=== PATIENT | male | born 1970 | race Caucasian/White ===

== ENCOUNTER 2023-03-08 15:04 | Outpatient (REF) | payer BC, SELFPAY ==
[2023-03-08 16:49] LABS: Abs Immature Grans 0.02 10^3/uL (0.0-0.06); Absolute Basophil Count 0.08 10^3/uL (0.0-0.2); Absolute Eosinophil Count 0.74 10^3/uL (0.0-0.7); Absolute Lymphocyte Count 1.95 10^3/uL (1.2-3.4); Absolute Monocyte Count 0.46 10^3/uL (0.1-0.8); Absolute Neutrophil Count 3.41 10^3/uL (1.2-6.7); Basophils % 1.2; Eosinophils % 11.1; HCT 38.7 % (40.0-50.0); HGB 12.4 g/dL (13.5-17.5); Immature Grans % 0.3; Lymphocytes % 29.3; MCV 91 fL (80-95); MPV 9.8 fL (8.0-11.0); Monocytes % 6.9; Neutrophils % 51.2; Platelet Count 297 10^3/uL (130-400); RBC 4.27 10^6/uL (4.36-5.78); RDW 13.6 % (11.8-14.1); RDW-SD 45.2 fL; WBC 6.66 10^3/uL (4.4-10.8)
[2023-03-08 17:30] LABS: Hemoglobin A1C 6.1 % (<5.7)
[2023-03-08 17:39] LABS: ALT 29 U/L (16-63); AST 12 U/L (15-37); Alkaline Phosphatase 77 U/L (46-116); BUN 13 mg/dL (7-18); Bilirubin, Total 0.3 mg/dL (0.2-1.0); CREATININE 0.8 mg/dL (0.70-1.30); Calcium 9.2 mg/dL (8.5-10.1); Calculated LDL 44 mg/dL (<100); Chloride 103 mmol/L (98-107); Cholesterol 113 mg/dL (<200); Estimated GFR 106.48 (mL/min/1.73m2); Glucose 141 mg/dL (74-106); HDL Cholesterol 51 mg/dL (40-60); Potassium 4.1 mmol/L (3.5-5.1); Sodium 140 mmol/L (136-145); Total Protein 6.9 g/dL (6.4-8.2); Triglyceride 93 mg/dL (<150)
[2023-03-08 17:49] LABS: Microalb ug/mg Crea 6.2 ug/mg Cr
== END 2023-03-08 15:05 | disposition home or self-care (01) ==
LOC: NCHCN 15:04
PROVIDERS: PCP Nurse Practitioner Family; Visit Provider Nurse Practitioner Family
DX: E11.9 Type 2 diabetes mellitus without complications (principal); Z87.891 Personal history of nicotine dependence; E78.5 Hyperlipidemia, unspecified
CPT/HCPCS: 80053; 80061; 82043; 82570; 83036; 85025

== ENCOUNTER 2023-12-03 16:37 | Outpatient (REF) | payer BC, SELFPAY ==
[2023-12-03 19:45] LABS: Abs Immature Grans 0.02 10^3/uL (0.0-0.06); Absolute Basophil Count 0.08 10^3/uL (0.0-0.2); Absolute Eosinophil Count 0.61 10^3/uL (0.0-0.7); Absolute Lymphocyte Count 2.42 10^3/uL (1.2-3.4); Absolute Monocyte Count 0.56 10^3/uL (0.1-0.8); Absolute Neutrophil Count 2.98 10^3/uL (1.2-6.7); Basophils % 1.2; Eosinophils % 9.1; HCT 41.1 % (40.0-50.0); HGB 13.6 g/dL (13.5-17.5); Immature Grans % 0.3; Lymphocytes % 36.3; MCH 29.1 pg (27.0-33.0); MCHC 33.1 % (32.0-36.0); MCV 88 fL (80-95); MPV 9.9 fL (8.0-11.0); Monocytes % 8.4; Neutrophils % 44.7; Platelet Count 257 10^3/uL (130-400); RBC 4.67 10^6/uL (4.36-5.78); RDW 13.2 % (11.8-14.1); RDW-SD 42.4 fL; Reticulocyte 1.1 % (0.5-2.4); WBC 6.67 10^3/uL (4.4-10.8)
[2023-12-03 19:59] LABS: Iron 62 ug/dL (65-175); Total Iron Binding Capacity 307 ug/dL (250-450); Transferrin Sat 20 % (20-55)
[2023-12-03 20:08] LABS: Hemoglobin A1C 6.4 % (<5.7)
[2023-12-03 20:27] LABS: Ferritin 73 ng/mL (26-388); Folate 18.3 ng/mL (8.6-20.0); Vitamin B12 419 pg/mL (193-986)
== END 2023-12-03 16:38 | disposition home or self-care (01) ==
LOC: NCHCN 16:37
PROVIDERS: PCP Nurse Practitioner Family; Visit Provider Student in an Organized Health Care Education/Training Program
DX: E11.9 Type 2 diabetes mellitus without complications (principal); D64.9 Anemia, unspecified
CPT/HCPCS: 85027; 82607; 82728; 82746; 83036; 83540; 83550; 85025; 85045

== ENCOUNTER 2024-01-13 13:46 | Outpatient (CLI) | payer BC, SELFPAY ==
--- NOTE | 2024-01-13 13:45 | RT.EKG_ITS ---
APPROVED REPORT Exam: Resting ECG Reason for Exam: baseline Patient Location: O HR:70 bpm ECG Measurements Heart Rate 70 AXIS WI 161 P 39 QRSd 98 QRS -24 QT 398 T 59 QTc 430 Conclusion Sinus rhythm...normal P axis, V-rate 50- 99 Probable left atrial enlargement...P >50mS, <-0.10mV V1 Borderline left axis deviation...QRS axis (-15,-29) Abnormal R-wave progression, late transition...QRS area<0 in V5/V6 Baseline wander in lead(s) V2
== END 2024-01-13 13:47 | disposition home or self-care (01) ==
LOC: DI.CARD 13:47
PROVIDERS: PCP Nurse Practitioner Family; Visit Provider Internal Medicine Cardiovascular Disease
DX: I25.10 Atherosclerotic heart disease of native coronary artery without angina pectoris (principal)
CPT/HCPCS: 93010

== ENCOUNTER 2024-05-22 06:57 | Day surgery (SDC) | payer BC, SELFPAY ==
--- NOTE | 2024-05-21 13:44 | PDOC.DSDIS_ITS ---
Date of service: 05/22/24 Time of Service: 08:42 Discharge Plan Disposition Patient Disposition: Home Condition: Good Discharge Details Reason For Visit: screening colonoscopy Attending Provider: Saul Florez Primary Care Provider: Radha Mack Home Meds and New Rx's Prescriptions: Continued metoprolol succinate 25 mg tablet extended release 24 hr 25 mg PO DAILY Qty: 90 3RF aspirin [Adult Aspirin Regimen] 81 mg tablet,delayed release (DR/EC) 81 mg PO DAILY atorvastatin 80 mg tablet 80 mg PO DAILY metformin 1,000 mg tablet 1,000 mg PO BID nitroglycerin 0.4 mg tablet, sublingual 0.4 mg sublingual Q5-15M PRN Rx Instructions: do not exceed 3 doses per episode Discontinued bisacodyl [Dulcolax (bisacodyl)] 5 mg tablet,delayed release (DR/EC) 5 mg PO ONCE Qty: 4 0RF Rx Instructions: Take per colonoscopy instructions provided by ordering providers office polyethylene glycol 3350 17 gram/dose powder 17 g PO ONCE Qty: 238 0RF Rx Instructions: Take per colonoscopy instructions provided by ordering providers office Discharge Instructions Instructions: Colon polyps, Diverticulosis Additional Instructions: Eliceo, we are able to complete your colonoscopy today without any difficulty. I did find and remove 6 polyps. All of these were quite small, and none of them have any features that are worrisome to the naked eye. Regardless, I will send these all off for testing, as the nature of the polyps informs the timing of the next colonoscopy. Those results usually take about a week or so to get back, and once they are available, the office will be in touch with recommendations. Incidentally, you also have some diverticulosis. Diverticula are weak spots in the wall of the colon. They typically accumulate as we get older. They can get infected or inflamed. When that happens, we caught diverticulitis, and it is typically experienced as sharp pain, often times on the left lower part of the abdomen. Many times patients are treated with antibiotics during those flareups. Hopefully, you are is never bother you. If you need anything at all, just let us know. Otherwise, we will be in touch once the polyp results are available. 1. If tolerated, consume a soft, low fiber diet for 1-2 days. 2. Do not drive, drink alcohol, operate machinery, make critical decisions, or do activities that require coordination or balance for 24 hours. 3. Because air was put into your colon during the procedure, expelling air from your rectum (passing gas or farting) is normal. 4. You may not have a bowel movement for 1-3 days because of the colonoscopy p rep. This is normal. 5. Go directly to the emergency room if you notice any of the following: Develop chills (warm to touch), or if you have a thermometer and your temperature is above 101 Difficulty breathing or difficultly swallowing Persistent vomiting Severe abdominal pain, other than gas cramps Severe chest pain Black, tarry stools Any bleeding ? exceeding one tablespoon 6. Call your physician if the site where your intravenous was started becomes red, swollen, painful, and warm to touch. 7. Your physician has reviewed your pre-procedure medications. Please continue to take those medications as previously ordered. You will be given specific information/education regarding any changes to your medications before leaving. Activity:: Activity as Tolerated Diet:: As Tolerated Discharge Orders Discharge Orders: Discharge Order (Routine); Ordered 05/21/24 Ordered By: Saul Florez DS: Diagnosis Discharge Diagnosis (1) Encounter for screening colonoscopy: Status: Acute Asessment and Plan: Follow-up on polypectomy results
--- NOTE | 2024-05-21 13:47 | COLE_ITS ---
Date of service: 05/22/24 Time of Service: 08:44 Colonoscopy Report Date of procedure: 05/22/24 Pre-op diagnosis general: screening colonoscopy Post-op diagnosis procedure note: other (Diverticulosis, colon polyps) Procedure: colonoscopy Surgeon: Saul Florez Anesthesia Type: General:No Airway Estimated blood loss (mL): 10 Pathology: other (0.25 cm cecal polyp, 0.5 cm cecal polyp, 0.25 cm polyp at 100 cm, 0.5 cm polyp at 100 cm, 0.25 cm polyp at 30 cm, 0.5 cm polyp at 25 cm) Complications: None Disposition: same day Indications: Antoni is a 54 year old man who needs a screening colonoscopy Prep: Miralax/Dulcolax Procedure Start Time: 08:09 Procedure End Time: 08:35 Retraction Time: 18 Findings: Sigmoid diverticulosis; 0.25 cm cecal polyp, 0.5 cm cecal polyp, 0.25 cm polyp at 100 cm, 0.5 cm polyp at 100 cm, 0.25 cm polyp at 30 cm, 0.5 cm polyp at 25 cm Procedure Description: After the induction of anesthesia, and with the patient in left lateral decubitus position, I began by performing an external anorectal exam.? Perineum and skin were normal, as was the anal verge.? There was no evidence of external hemorrhoids.? Next, I performed a digital rectal exam.? I did not appreciate any abnormal findings.? Next, I advanced a colonoscope into the rectal vault.? I performed retroflexion.? This appeared normal.? Using insufflation, I then advanced the colonoscope beyond the rectal folds and into the sigmoid colon be fore advancing towards the cecum.? There was some sigmoid diverticulosis. The scope was noted to be in the cecum by identification of the ileocecal valve and appendiceal orifice.? Just a few centimeters away from the appendiceal orifice were 2 polyps. 1 was 0.5 cm, and a little bit heaped up, the other was 0.25 cm and flat. These were removed. The larger was excised with cold snare polypectomy. Cold forceps were used for the smaller of the two. I then began withdrawing the colonoscope using repeated irrigation as necessary for full evaluation of the colonic mucosa. ?I also found 2 polyps at 100 cm from the anus. 1 of these was 0.5 cm and mostly flat. The other was 0.25 cm and also flat. These were both removed with snare polypectomy. There was minimal bleeding at the sites. I found a 0.25 cm flat polyp at 30 cm that was removed with cold forceps, and a 0.5 cm polyp at 25 cm that was slightly pedunculated. This was removed with snare polypectomy. All of the sites were hemostatic. Once the scope was withdrawn to the level of the rectum, great care was taken to examine portions of the rectal folds.? Finally, the scope was withdrawn and the patient was brought to the same-day surgery recovery unit as the anesthetic wore off. ?The findings and instructions were shared with the patient prior to discharge. [place] Bowel Prep [place] Bowel Prep Right Colon: 3 Left Colon: 3 Transverse Colon: 3 Total Score: 9
--- NOTE | 2024-05-22 06:33 | ANES.PREOP_ITS ---
General Info Date of Service Date Performed: 05/22/24 Height: 6 ft Weight: 43.824 kg Body Mass Index (BMI): 13.1 Surgical Procedure: Operation Date: 05/22/24 08:20 Proposed Procedure Side Surgeon mohinder Florez MD Meds Allergies and Home Medications Allergies Allergy/AdvReac Type Severity Reaction Status Date / Time No Known Allergies Allergy Verified 05/19/24 09:12 Home Medication ?Medication ?Instructions ?Recorded aspirin 81 mg tablet,delayed 81 mg PO DAILY 12/07/23 release (Adult Aspirin Regimen) atorvastatin 80 mg tablet 80 mg PO DAILY 12/07/23 metformin 1,000 mg tablet 1,000 mg PO BID 12/07/23 nitroglycerin 0.4 mg sublingual 0.4 mg sublingual Q5-15M PRN 12/07/23 tablet metoprolol succinate 25 mg 25 mg PO DAILY #90 tabs 01/13/24 tablet,extended release 24 hr Current Visit Medications: Current Medications Generic Name Dose Route Start Last Admin Trade Name Freq PRN Reason Stop Dose Admin Ringer's Solution 1,000 mls @ 80 mls/hr 05/22/24 06:00 IV 05/22/24 23:59 INFUSION VEENA IV Miscellaneous Supplies 1 each 05/22/24 06:00 Iv Access IV 05/22/24 23:59 DIRECTED VEENA Ondansetron HCl 4 mg 05/21/24 13:48 Ondansetron 4 Mg/2 Ml Vial IVP 06/20/24 13:47 Q4H PRN PRN Nausea / Vomiting Sodium Chloride 0 ml 05/22/24 06:00 Normal Saline Flush 10 Ml Syr IV 05/22/24 23:59 PRN PRN Sodium Chloride 0 ml 05/22/24 06:00 Normal Saline 10 Ml Vial IJ 05/22/24 23:59 DIRECTED PRN Sterile Water 0 ml 05/22/24 06:00 Water,Injection,Sterile 10 Ml Vial IJ 05/22/24 23:59 DIRECTED PRN PFSH Active Problems Active Problems: Problem Status Onset Code Encounter for screening colonoscopy Acute Z12.11 Atherosclerosis of coronary artery without angina pectoris Acute I25.10 Dizziness Acute R42 Pain in thoracic spine Acute M54.6 Osteoarthritis Chronic M19.90 GERD without esophagitis Acute K21.9 Coronary atherosclerosis Acute I25.10 Benign paroxysmal positional vertigo Acute H81.10 Anxiety Chronic F41.9 Anemia Chronic D64.9 Type 2 diabetes mellitus without complication Acute E11.9 Medical History Medical History History of blood disorder Pt. states she does not know anything about this. Old myocardial infarction Essential hypertension Insomnia Nicotine dependence Hyperlipemia Tobacco Smoking/Tobacco Use Status: Former Tobacco Use Alcohol Alcohol Intake: never Substance Use Substance use: Never Substance use type: does not use Vital Signs and Lab Results Lab Results Blood Type / Crossmatch: No Data to Display Complete Blood Count: No Data to Display Complete Metabolic Panel: No Data to Display Liver Function Panel: No Data to Display Coagulation Panel: No Data to Display Cardiac Panel: No Data to Display Arterial Blood Gas: No Data to Display Venous Blood Gas: No Data to Display Pancreas Panel: No Data to Display Thyroid Panel: No Data to Display Infectious Disease: No Data to Display Blood Cultures: No Data to Display Toxicology Panel: No Data to Display Imaging and Studies Imaging and Studies Study information below may be from another EMR and interpreted by another provider. Please see original notes in EMR for more complete details. EKG Summary: EKG PATIENT NAME: Antoni Dai UNIT #: [id number] ORDERING PROVIDER: Augustin Junior M.D. PRIMARY CARE PROVIDER: ADRIANA MANUEL DATE/TIME OF SERVICE: 01/13/24 1239 : 1970 PERFORMING LOCATION: [facility] APPROVED REPORT Exam: Resting ECG Reason for Exam: baseline Patient Location: O HR:70 bpm ECG Measurements Heart Rate 70 AXIS SD 161 P 39 QRSd 98 QRS -24 QT 398 T59 QTc 430 Conclusion Sinus rhythm...normal P axis, V-rate 50- 99 Probable left atrial enlargement...P >50mS, <-0.10mV V1 Borderline left axis deviation...QRS axis (-15,-29) Abnormal R-wave progression, late transition...QRS area<0 in V5/V6 Baseline wander in lead(s) V2 <Electronically signed by AUGUSTIN JUNIOR MD in OV> E-Sign Date: 01/13/24 E-Sign Time: 1354 Anesthesia Assessment and Plan Anesthesia History Personal History: No History of Anesthesia Complications Family History: No Family History of Anesthesia Complications Exercise Tolerance Exercise Tolerance: Metabolic Equivalents>4 Pertinent Negatives Pertinent Negatives: No Symptoms of GERD, No Major Cardiovascular Symptoms or Complaints, No Major Pulmonary Symptoms or Complaints and No History of CVA/TIA Cardiac & Pulmonary Exam Cardiac Exam: Normal S1/S2 Heart Sounds Pulmonary Exam: Clear Bilateral Breath Sounds Implantable Cardiac Device Does patient have a Pacemaker or an ICD?: No Airway Exam Known Difficult Airway: No Mallampati Class: 4 Mouth Opening: Narrow (< 3cm) Thyromental Distance: Greater than 3 cm Neck Range of Motion: Full ROM Neck Circumference: Normal Teeth Condition: Generalized Poor Dentition and Edentulous (On upper jaw) ASA Classification ASA Score: ASA 2 Emergency Case?: No NPO Status NPO Status: NPO Clears >2 hours, Solids >8 hours Anesthesia Plan Resuscitation Status: Full Code Anesthesia Technique: General Anesthesia Airway Planned: Natural Airway Monitors Used: Standard Monitors
[2024-05-22 07:05] VITALS: BP 135/84; PULSE 68; RESP 16; TEMP 36.6; O2SAT 95
[2024-05-22 07:23] VITALS: BMI 13.1
[2024-05-22] MEDS: Lactated Ringers 1,000 ML 80 ML IV (07:40)
--- NOTE | 2024-05-22 08:21 | BOWEL_PTH ---
PATIENT: Antoni Dai LOC: [facility] U#:[id number] AGE/SX: 54/M ROOM: RE05/22/[address]: Saul Florez MD : 1970 BED: DIS: 05/22/2024 SPEC #: [id number] RECD: 05/22/24 12:39 STATUS: FLORA REQ #: [id number] KAREN: 05/22/24 08:[address]: Saul Florez DEPT: Surgical Specimen RECD BY: Anna Adams ENTERED: 05/22/24 12:41 SP TYPE: Bowel OTHR DR: Radha Mack Tissues: 1 - BIOPSY BOWEL 2 - BIOPSY BOWEL 3 - BIOPSY BOWEL 4 - BIOPSY BOWEL Procedures: GROSS AND MICRO LEVEL 4 Comments: [id number]
[2024-05-22 08:40] VITALS: BP 120/80; PULSE 75; RESP 16; TEMP 36.6; O2SAT 97
[2024-05-22 09:06] VITALS: BP 156/83; PULSE 59; RESP 16; TEMP 36.6; O2SAT 99
--- NOTE | 2024-05-22 09:12 | W.ANESPOSTOP ---
Postoperative Evaluation Date, Time and Location Date Performed: 05/22/24 Time Performed: 08:40 Patient Location: Day Surgery Unit Vital Signs Most Recent Imported Vital Signs: Most Recent Vital Signs Temp Pulse Resp BP Pulse Ox 36.6 C 59 L 16 156/83 H 99 05/22/24 09:06 05/22/24 09:06 05/22/24 09:06 05/22/24 09:06 05/22/24 09:06 Pain Score Most Recent Pain Score: Most Recent Pain Score Pain Level 0 05/22/24 09:06 Assessment Mental Status: Awake (Alert & Oriented to Patient Baseline) Airway and Respiratory Function: Patent airway with normal (patient baseline) respiratory exam Cardiovascular Function: Hemodynamically Stable Hydration Status: Adequately Hydrated Nausea & Vomiting: No Nausea or Vomiting Pain: Pt. Denies Any Pain Peripheral Nerve Block: Patient did not receive a nerve block
== END 2024-05-22 09:16 | disposition home or self-care (01) ==
LOC: SUR 06:57
PROVIDERS: PCP Nurse Practitioner Family; Visit Provider Surgery
PROC: 0DJD8ZZ Inspection of Lower Intestinal Tract, Via Natural or Artificial Opening Endoscopic (ICD-10-PCS; CPT 45378; principal; 2024-05-22 08:15)
DX: Z12.11 Encounter for screening for malignant neoplasm of colon (principal); I25.10 Atherosclerotic heart disease of native coronary artery without angina pectoris; D12.3 Benign neoplasm of transverse colon; K57.30 Diverticulosis of large intestine without perforation or abscess without bleeding; D12.5 Benign neoplasm of sigmoid colon; D12.0 Benign neoplasm of cecum
CPT/HCPCS: 45385; 45380; 88305; J2704

== ENCOUNTER 2024-07-14 18:27 | Outpatient (REF) | payer BC, SELFPAY ==
[2024-07-14 20:08] LABS: COMMENT (LAB VIEW ONLY) 154.41 mg/dL
== END 2024-07-14 18:28 | disposition home or self-care (01) ==
LOC: NCHCN 18:27
PROVIDERS: PCP Nurse Practitioner Family; Visit Provider Student in an Organized Health Care Education/Training Program
DX: E11.9 Type 2 diabetes mellitus without complications (principal)
CPT/HCPCS: 82043; 82570

== ENCOUNTER 2025-06-06 13:16 | Outpatient (REF) | payer BC, SELFPAY ==
[2025-06-06 16:41] LABS: COMMENT (LAB VIEW ONLY) 135.08 mg/dL; Microalb ug/mg Crea 18.1 ug/mg Cr
== END 2025-06-06 13:17 | disposition home or self-care (01) ==
LOC: NCHCN 13:16
PROVIDERS: PCP Nurse Practitioner Family; Visit Provider Student in an Organized Health Care Education/Training Program
DX: E11.9 Type 2 diabetes mellitus without complications (principal)
CPT/HCPCS: 82043; 82570

== ENCOUNTER 2025-08-06 08:18 | Outpatient (CLI) | payer BC, SELFPAY ==
--- NOTE | 2025-08-06 08:15 | RT.EKG_ITS ---
APPROVED REPORT Exam: Resting ECG Reason for Exam: CAD Patient Location: O HR:78 bpm ECG Measurements Heart Rate 78 AXIS [place] 166 P 18 QRSd 101 QRS -27 QT 386 T 67 QTc 440 Conclusion Sinus rhythm...normal P axis, V-rate 50- 99 Probable left atrial enlargement...P >50mS, <-0.10mV V1 Borderline left axis deviation...QRS axis (-15,-29) RSR' in V1 or V2, probably normal variant...small R' only
== END 2025-08-06 08:19 | disposition home or self-care (01) ==
LOC: DI.CARD 08:19
PROVIDERS: PCP Nurse Practitioner Family; Visit Provider Registered Nurse
DX: I25.10 Atherosclerotic heart disease of native coronary artery without angina pectoris (principal); I51.7 Cardiomegaly; I25.810 Atherosclerosis of coronary artery bypass graft(s) without angina pectoris
CPT/HCPCS: 93010